=== PATIENT | male | born 1950 | race African-American/Black ===

== ENCOUNTER 2020-09-29 16:56 | Emergency (ER) | payer OTHER ==
[2020-09-29 17:17] VITALS: BP 139/75; PULSE 55; TEMP 97; BMI 35.5
[2020-09-29 19:38] LABS: BASO % 0.3 % (0-2.0); EOS % 0.2 % (0-4.5); HEMATOCRIT 37.9 % (35.4-49); HEMOGLOBIN 13.1 GM/dL (11.7-16.9); LYMPH % 10.5 % (8-40); MCH 30.4 pg (25.7-33.7); MCHC 34.5 g/dl (32.0-35.9); MEAN CELL VOLUME 88.2 fl (80-96); MEAN PLT VOLUME 8.6 fl (7.5-11.1); MONO % 15.1 % (3.8-10.2); NEUT % 73.9 % (42.8-82.8); PLATELET COUNT 209 10^3/uL (134-434); RDW 14.2 % (11.9-15.9); WHITE BLOOD COUNT 8.8 K/mm3 (4.0-10.0)
[2020-09-29 19:51] LABS: EPI CELLS 4 /uL (0-25.1); HYALINE CASTS 0 /uL (0-3.1); URINE APPEARANCE CLOUDY; URINE BACTERIA >9,000 /uL (0-1359); URINE BILIRUBIN NEGATIVE (NEGATIVE); URINE COLOR YELLOW; URINE GLUCOSE (UA) NEGATIVE (NEGATIVE); URINE KETONE NEGATIVE (NEGATIVE); URINE LEUK ESTERASE 3+ (NEGATIVE); URINE NITRITE POSITIVE (NEGATIVE); URINE PROTEIN TRACE (NEGATIVE); URINE RBC 53 /uL (0-23.9); URINE UROBILINOGEN 0.2 mg/dL (0.2-1.0); URINE WBC 1549 /uL (0-25.8)
[2020-09-29 20:02] LABS: CALCIUM 8.7 mg/dL (8.5-10.1)
[2020-09-29 20:03] LABS: BLOOD UREA NITROGEN 13.3 mg/dL (7-18)
[2020-09-29 20:06] LABS: CREATININE 1.1 mg/dL (0.55-1.3)
[2020-09-29 20:07] LABS: TOT PROT 6.4 g/dl (6.4-8.2)
== END 2020-09-29 21:37 | disposition left against medical advice (07) ==
LOC: JER 16:56
DX: N45.3 Epididymo-orchitis (principal)
CPT/HCPCS: 36415; 76870-TC; 80053; 81003; 85025; 87086; 87186; 99284-25

== ENCOUNTER 2022-10-13 12:23 | Observation (INO) | payer BC, OTHER ==
[2022-10-13] MEDS ORDERED: amLODIPine BESYLATE 5 MG TABLET (FP) PO ONE (14:56)
[2022-10-13] MEDS ORDERED: amLODIPine BESYLATE 5 MG TABLET (FP) ONE (14:57)
[2022-10-13 15:12] LABS: BASO % 0.4 % (0-2.0); EOS % 0.5 % (0-4.5); HEMATOCRIT 40.9 % (35.4-49); MCH 30.1 pg (25.7-33.7); MCHC 34.2 g/dl (32.0-35.9); MEAN PLT VOLUME 9.7 fl (7.5-11.1); MONO % 9.5 % (3.8-10.2); NEUT % 68.6 % (42.8-82.8); PLATELET COUNT 186 10^3/uL (134-434); RBC 4.65 M/mm3 (4.00-5.60); RDW 14.7 % (11.9-15.9); WHITE BLOOD COUNT 8.7 K/mm3 (4.0-10.0)
[2022-10-13 15:37] LABS: POTASSIUM 4.4 mmol/L (3.5-5.1)
[2022-10-13 15:40] LABS: ALBUMIN 3.5 g/dl (3.4-5.0); CALCIUM 8.9 mg/dL (8.5-10.1)
[2022-10-13 15:43] LABS: CREATININE 1.2 mg/dL (0.55-1.3)
[2022-10-13] MEDS ORDERED: LACTATED RINGERS SOLUTION 1,000 ML/1,000 ML INFUS.BAG IV SCH (18:00)
[2022-10-13] MEDS ORDERED: ATORVASTATIN CA 80 MG TABLET (FP) ONE ×2 (22:06→22:20)
[2022-10-13] MEDS: ATORVASTATIN CA 80 MG TABLET (FP) PO SCH (22:20)
[2022-10-13 23:11] LABS: URINE APPEARANCE CLEAR; URINE BILIRUBIN NEGATIVE (NEGATIVE); URINE COLOR YELLOW; URINE GLUCOSE (UA) NEGATIVE (NEGATIVE); URINE KETONE NEGATIVE (NEGATIVE); URINE LEUK ESTERASE NEGATIVE (NEGATIVE); URINE NITRITE NEGATIVE (NEGATIVE); URINE PROTEIN NEGATIVE (NEGATIVE)
[2022-10-14 00:56] LABS: COCAINE, UR NEGATIVE (NEGATIVE); OPIATES, URI NEGATIVE (NEGATIVE); PHENCYCLIDINE,URINE NEGATIVE (NEGATIVE); URINE AMPHETAMINES NEGATIVE (NEGATIVE); URINE BARBITURATES NEGATIVE (NEGATIVE); URINE BENZODIAZEPINES NEGATIVE (NEGATIVE)
[2022-10-14 00:57] LABS: METHADONE, UR NEGATIVE (NEGATIVE)
[2022-10-14 01:53] VITALS: BMI 39.8
[2022-10-14] MEDS ORDERED: hydrALAZINE HCL 20 MG/ML VIAL IVPUSH ONE (03:22)
[2022-10-14] MEDS: LEVOTHYROXINE NA 150 MCG TABLET PO SCH (06:24)
[2022-10-14 07:18] LABS: BASO % 0.2 % (0-2.0); EOS % 0.7 % (0-4.5); HEMATOCRIT 42.9 % (35.4-49); HEMOGLOBIN 14.3 GM/dL (11.7-16.9); LYMPH % 18.2 % (8-40); MCH 29.5 pg (25.7-33.7); MCHC 33.3 g/dl (32.0-35.9); MEAN CELL VOLUME 88.7 fl (80-96); MONO % 8.2 % (3.8-10.2); NEUT % 72.7 % (42.8-82.8); PLATELET COUNT 193 10^3/uL (134-434); RBC 4.84 M/mm3 (4.00-5.60); RDW 14.4 % (11.9-15.9); WHITE BLOOD COUNT 6.9 K/mm3 (4.0-10.0)
[2022-10-14 07:41] LABS: BLOOD UREA NITROGEN 21.5 mg/dL (7-18); CALCIUM 8.9 mg/dL (8.5-10.1)
[2022-10-14 07:42] LABS: ALBUMIN 3.3 g/dl (3.4-5.0); MAGNESIUM 1.8 mg/dL (1.8-2.4)
[2022-10-14 07:44] LABS: PHOSPHOROUS 2.3 mg/dL (2.5-4.9)
[2022-10-14 07:45] LABS: CREATININE 1.3 mg/dL (0.55-1.3)
[2022-10-14 07:46] LABS: BILIRUBIN,TOTAL 0.8 mg/dL (0.2-1); TOT PROT 6.9 g/dl (6.4-8.2)
[2022-10-14] MEDS ORDERED: LISINOPRIL 10 MG TABLET PO SCH (10:00)
[2022-10-14] MEDS ORDERED: amLODIPine BESYLATE 5 MG TABLET (FP) PO SCH (10:00)
[2022-10-14] MEDS ORDERED: FUROSEMIDE 40 MG TABLET (FP) PO SCH (10:00)
[2022-10-14] MEDS ORDERED: SPIRONOLACTONE 25 MG TABLET PO SCH (10:00)
[2022-10-14] MEDS ORDERED: EZETIMIBE 10 MG TABLET (FP) PO SCH ×2 (10:00→22:00)
[2022-10-14] MEDS: ENOXAPARIN NA (PORCINE) 40 MG/0.4 ML DISP.SYRIN SQ SCH (10:35)
[2022-10-14] MEDS ORDERED: amLODIPine BESYLATE 5 MG TABLET (FP) PO ONE ×2 (13:36→15:45)
[2022-10-14] MEDS: NAPH,MB-DB/K PH,MBDB POWDER PACKET PO SCH ×2 (14:45→23:16)
[2022-10-14] MEDS: ATORVASTATIN CA 80 MG TABLET (FP) PO SCH (23:16)
[2022-10-15] MEDS: NAPH,MB-DB/K PH,MBDB POWDER PACKET PO SCH (06:10)
[2022-10-15] MEDS: LEVOTHYROXINE NA 150 MCG TABLET PO SCH (06:10)
[2022-10-15 06:57] VITALS: RESP 20
[2022-10-15 08:06] LABS: HEMATOCRIT 43.7 % (35.4-49); HEMOGLOBIN 14.7 GM/dL (11.7-16.9); MCH 29.9 pg (25.7-33.7); MCHC 33.6 g/dl (32.0-35.9); MEAN PLT VOLUME 10.2 fl (7.5-11.1); PLATELET COUNT 213 10^3/uL (134-434); RBC 4.91 M/mm3 (4.00-5.60); RDW 14.5 % (11.9-15.9)
[2022-10-15 08:23] LABS: POTASSIUM 3.9 mmol/L (3.5-5.1)
[2022-10-15 08:29] LABS: CALCIUM 9.3 mg/dL (8.5-10.1)
[2022-10-15 08:30] LABS: ALBUMIN 3.7 g/dl (3.4-5.0); BLOOD UREA NITROGEN 16.7 mg/dL (7-18)
[2022-10-15 08:33] LABS: CREATININE 1.2 mg/dL (0.55-1.3); PHOSPHOROUS 3.1 mg/dL (2.5-4.9)
[2022-10-15 08:34] LABS: BILIRUBIN,TOTAL 1.2 mg/dL (0.2-1); TOT PROT 7.1 g/dl (6.4-8.2)
[2022-10-15] MEDS: ENOXAPARIN NA (PORCINE) 40 MG/0.4 ML DISP.SYRIN SQ SCH (09:40)
[2022-10-15] MEDS ORDERED: amLODIPine BESYLATE 5 MG TABLET (FP) PO SCH (10:00)
[2022-10-15 12:20] VITALS: BP 169/96; PULSE 71; TEMP 98.6
== END 2022-10-15 10:15 | disposition home or self-care (01) ==
LOC: JER 12:23 → JERBED 14:00 → J4W 10-14 01:41
PROVIDERS: ADMIT Internal Medicine; ATTEND Internal Medicine
PROC: 3E033GC Introduction of Other Therapeutic Substance into Peripheral Vein, Percutaneous Approach (ICD-10-PCS; principal; 2022-10-13)
PROC: 3E0337Z Introduction of Electrolytic and Water Balance Substance into Peripheral Vein, Percutaneous Approach (ICD-10-PCS; 2022-10-13)
DX: R55 Syncope and collapse (principal); S09.90XA Unspecified injury of head, initial encounter; S00.81XA Abrasion of other part of head, initial encounter; W18.39XA Other fall on same level, initial encounter; Y93.89 Activity, other specified; Y92.830 Public park as the place of occurrence of the external cause; E03.9 Hypothyroidism, unspecified; F10.21 Alcohol dependence, in remission; F12.10 Cannabis abuse, uncomplicated; R73.03 Prediabetes; I16.0 Hypertensive urgency; Z29.8 Encounter for other specified prophylactic measures; I44.7 Left bundle-branch block, unspecified
CPT/HCPCS: 36415; 70450-TC; 71046-TC-FY; 72125-TC; 80053; 80307; 81003; 82550; 83036; 83735; 84100; 84443; 84484; 85025; 85027; 93005; 93010; 96361; 96374; 99285-25; G0378